=== PATIENT | female | born 1940 | race Caucasian/White ===

== ENCOUNTER 2017-10-19 13:47 | Inpatient (IN) | payer MEDICARE ==
[~2017-10-19] VITALS: Ht 165.1 cm; Wt 45.0 kg
[2017-10-19 14:28] LABS: BASOPHILS % (AUTO) 0.5 % (0.0-5.0); EOSINOPHILS % (AUTO) 1.8 % (0.0-8.0); HEMATOCRIT 28.8 % (36-48); MEAN CORPUSCULAR HEMOGLOBIN 33.5 pg (27.0-33.0); MEAN CORPUSCULAR HGB CONC 32.9 g/dL (32.0-36.0); MEAN CORPUSCULAR VOLUME 102.1 fL (79-99); MONOCYTES % (AUTO) 8.4 % (3.0-13.0); NEUTROPHILS % (AUTO) 82.1 % (40.0-77.0); PLATELET COUNT (AUTO) 382 K/uL (130-400); RED BLOOD CELL COUNT(AUTO) 2.82 MIL/uL (4.00-5.50); RED CELL DISTRIBUTION WIDTH 15.7 % (11.0-15.5); WHITE BLOOD COUNT (AUTO) 12.2 K/uL (4.8-10.8)
[2017-10-19 14:35] LABS: POTASSIUM 3.6 mmol/L (3.5-5.1)
[2017-10-19 14:40] LABS: ALBUMIN 3.2 g/dL (3.5-5.0); BILIRUBIN,TOTAL 0.1 mg/dL (0.2-1.0); INR 0.89 (0.85-1.15); PARTIAL THROMBOPLASTIN TIME 21.8 SEC (26.3-35.5); PROTHROMBIN TIME 9.4 SEC (9.6-11.6); TOTAL PROTEIN, SERUM 6.8 g/dL (6.0-8.3)
[2017-10-19 14:57] LABS: LYMPHOCYTES % (AUTO) 7.2 % (21.0-51.0)
[2017-10-19] MEDS ORDERED: HEPARIN SODIUM 5000UNIT/ML 1ML VIAL ONE (16:42)
[2017-10-19] MEDS ORDERED: HEPARIN 25000 UNITS/250 ML D5W 250 ML IV ONE (16:43)
[2017-10-19] MEDS ORDERED: HYDROMORPHONE 4MG/ML 1ML VIAL ONE (17:33)
[2017-10-20 05:43] LABS: BASOPHILS % (AUTO) 0.9 % (0.0-5.0); EOSINOPHILS % (AUTO) 6.1 % (0.0-8.0); HEMATOCRIT 27.5 % (36-48); LYMPHOCYTES % (AUTO) 10.9 % (21.0-51.0); MEAN CORPUSCULAR HEMOGLOBIN 34.7 pg (27.0-33.0); MEAN CORPUSCULAR HGB CONC 33.9 g/dL (32.0-36.0); MEAN CORPUSCULAR VOLUME 102.6 fL (79-99); MONOCYTES % (AUTO) 8.2 % (3.0-13.0); NEUTROPHILS % (AUTO) 73.9 % (40.0-77.0); PLATELET COUNT (AUTO) 361 K/uL (130-400); RED BLOOD CELL COUNT(AUTO) 2.68 MIL/uL (4.00-5.50); RED CELL DISTRIBUTION WIDTH 15.7 % (11.0-15.5); WHITE BLOOD COUNT (AUTO) 7.6 K/uL (4.8-10.8)
[2017-10-20 05:54] LABS: CREATININE 0.6 mg/dL (0.5-1.5); POTASSIUM 3.9 mmol/L (3.5-5.1)
[2017-10-20 05:59] LABS: BILIRUBIN,TOTAL 0.2 mg/dL (0.2-1.0); TOTAL PROTEIN, SERUM 6.4 g/dL (6.0-8.3)
[2017-10-20 07:51] LABS: INR 0.93 (0.85-1.15); PARTIAL THROMBOPLASTIN TIME 44.9 SEC (26.3-35.5); PROTHROMBIN TIME 9.8 SEC (9.6-11.6)
[2017-10-20 10:04] VITALS: BP 138/57
[2017-10-20] MEDS: SODIUM CHLORIDE 0.9% 1000ML 1,000 ML IV SCH ×2 (10:23→20:17)
[2017-10-20] MEDS ORDERED: OMEG-138 PO (10:49)
[2017-10-20] MEDS ORDERED: LISI-617 PO (10:49)
[2017-10-20] MEDS ORDERED: CHOL100046 PO (10:49)
[2017-10-20] MEDS ORDERED: BUDE10.2 IH (10:49)
[2017-10-20] MEDS ORDERED: FERR-82 PO (10:49)
[2017-10-20] MEDS ORDERED: OMEP20TA2 PO (10:49)
[2017-10-20] MEDS ORDERED: CALC600T12 PO (10:49)
[2017-10-20] MEDS ORDERED: ASPI-1197 PO (10:49)
[2017-10-20] MEDS ORDERED: IOPAMIDOL-370 75 ML VIAL IV ONE (11:02)
[2017-10-20] MEDS ORDERED: ISOVUE-370 50ML VIAL IV ONE (11:02)
[2017-10-20 12:07] VITALS: BP 144/71
[2017-10-20 14:07] LABS: INR 0.93 (0.85-1.15); PARTIAL THROMBOPLASTIN TIME 54.4 SEC (26.3-35.5); PROTHROMBIN TIME 9.8 SEC (9.6-11.6)
[2017-10-20 15:36] VITALS: BP 157/70
[2017-10-20] MEDS ORDERED: ALBU2.5V2 IH (19:00)
[2017-10-20 19:35] VITALS: BP 152/78
[2017-10-20] MEDS: HEPARIN 25000 UNITS/250 ML D5W 250 ML IV PRN (20:14)
[2017-10-20] MEDS: ALBUTEROL SULFATE 0.083% 2.5 MG/3 ML INH IH PRN (20:47)
[2017-10-20] MEDS: LISINOPRIL 5 MG TABLET PO SCH (21:59)
[2017-10-20 23:31] VITALS: BP 126/53
[2017-10-21] VITALS (12 sets, daily range): BP systolic 102–172; BP diastolic 48–80
[2017-10-21 05:24] LABS: INR 0.95 (0.85-1.15); PARTIAL THROMBOPLASTIN TIME 52.4 SEC (26.3-35.5)
[2017-10-21] MEDS: ALBUTEROL SULFATE 0.083% 2.5 MG/3 ML INH IH PRN ×2 (06:50→19:58)
[2017-10-21] MEDS ORDERED: ISOVUE-300 100 ML VIAL IV ONE (07:09)
[2017-10-21] MEDS ORDERED: HEPARIN SODIUM 1000UNIT/ML 10ML VIAL ONE (07:09)
[2017-10-21] MEDS ORDERED: LIDOCAINE HCL 2% 20ML ONE (07:09)
[2017-10-21] MEDS ORDERED: NITROGLYCERIN 5 MG/ML 10 ML VIAL IV ONE (07:09)
[2017-10-21] MEDS ORDERED: SODIUM BICARB 50MEQ 50ML VIAL ONE (07:37)
[2017-10-21] MEDS ORDERED: KETOROLAC TROMETHAMINE 30MG/ML ONE (07:45)
[2017-10-21] MEDS: Cholecalciferol (Vitamin D3) (Vitamin D) 1,000 UNIT PO SCH (09:00)
[2017-10-21] MEDS: SYMBICORT 160-4.5 MCG INHALER IH SCH ×2 (09:00→19:48)
[2017-10-21] MEDS: PANTOPRAZOLE SODIUM 40 MG TABLET.DR PO SCH (09:00)
[2017-10-21] MEDS: FISH OIL 1000 MG/CAP PO SCH (09:00)
[2017-10-21] MEDS: FERROUS SULFATE 325 MG TABLET.DR PO SCH (09:00)
[2017-10-21] MEDS: ASPIRIN 81MG TAB.CHEW PO SCH (09:00)
[2017-10-21] MEDS: CALCIUM CARBONATE 500 MG TABLET PO SCH (09:00)
[2017-10-21] MEDS ORDERED: ACETAMINOPHEN 325 MG TAB PO PRN (09:15)
[2017-10-21] MEDS ORDERED: KETOROLAC TROMETHAMINE 30MG/ML IV PRN (09:15)
[2017-10-21] MEDS: SODIUM CHLORIDE 0.9% 1000ML 1,000 ML IV SCH ×3 (09:58→18:34)
[2017-10-21] MEDS ORDERED: ACETAMINOPHEN-CODEINE 300/30MG TAB PO PRN ×2 (14:00)
[2017-10-21] MEDS ORDERED: HYDR-4068 PO (14:11)
[2017-10-21] MEDS ORDERED: REGADENOSON 0.4 MG/5 ML PF SYG IVP SCH (15:00)
[2017-10-21] MEDS ORDERED: HYDROCODONE/ACETAMINOPHEN 10/325 MG TAB PO PRN (15:45)
[2017-10-21] MEDS: LISINOPRIL 5 MG TABLET PO SCH (19:51)
[2017-10-21 20:06] LABS: INR 0.94 (0.85-1.15); PROTHROMBIN TIME 9.9 SEC (9.6-11.6)
[2017-10-22 03:58] VITALS: BP 104/53
[2017-10-22] MEDS: ALBUTEROL SULFATE 0.083% 2.5 MG/3 ML INH IH PRN ×2 (05:19→10:38)
[2017-10-22] MEDS: HYDROCODONE/ACETAMINOPHEN 10/325 MG TAB PO PRN ×2 (06:26→19:44)
[2017-10-22 08:00] VITALS: BP 103/48
[2017-10-22] MEDS: FISH OIL 1000 MG/CAP PO SCH (08:33)
[2017-10-22] MEDS: SODIUM CHLORIDE 0.9% 1000ML 1,000 ML IV SCH (08:33)
[2017-10-22] MEDS: ASPIRIN 81MG TAB.CHEW PO SCH (08:33)
[2017-10-22] MEDS: CALCIUM CARBONATE 500 MG TABLET PO SCH (08:33)
[2017-10-22] MEDS: FERROUS SULFATE 325 MG TABLET.DR PO SCH (08:34)
[2017-10-22] MEDS: Cholecalciferol (Vitamin D3) (Vitamin D) 1,000 UNIT PO SCH (08:34)
[2017-10-22] MEDS: SYMBICORT 160-4.5 MCG INHALER IH SCH ×2 (08:34→19:38)
[2017-10-22] MEDS: PANTOPRAZOLE SODIUM 40 MG TABLET.DR PO SCH (08:34)
[2017-10-22 11:00] VITALS: BP 111/56
[2017-10-22] MEDS: ALBUTEROL SULFATE 0.083% 2.5 MG/3 ML INH IH SCH ×2 (13:44→18:46)
[2017-10-22 16:00] VITALS: BP 114/70
[2017-10-22] MEDS: HEPARIN 25000 UNITS/250 ML D5W 250 ML IV PRN (16:25)
[2017-10-22] MEDS: LISINOPRIL 5 MG TABLET PO SCH (19:43)
[2017-10-22 19:46] VITALS: BP 137/68
[2017-10-22 23:38] VITALS: BP 117/56
[2017-10-23 03:43] VITALS: BP 119/52
[2017-10-23] MEDS: ALBUTEROL SULFATE 0.083% 2.5 MG/3 ML INH IH SCH ×4 (06:07→18:17)
[2017-10-23 07:24] LABS: MEAN CORPUSCULAR HEMOGLOBIN 34.1 pg (27.0-33.0); MEAN CORPUSCULAR HGB CONC 33.3 g/dL (32.0-36.0); MEAN CORPUSCULAR VOLUME 102.2 fL (79-99); PLATELET COUNT (AUTO) 240 K/uL (130-400); RED BLOOD CELL COUNT(AUTO) 1.93 MIL/uL (4.00-5.50); RED CELL DISTRIBUTION WIDTH 15.2 % (11.0-15.5); WHITE BLOOD COUNT (AUTO) 7.5 K/uL (4.8-10.8)
[2017-10-23 07:32] LABS: CREATININE 0.6 mg/dL (0.5-1.5); POTASSIUM 3.9 mmol/L (3.5-5.1)
[2017-10-23 07:34] LABS: HEMATOCRIT 19.7 % (36-48)
[2017-10-23 07:41] VITALS: BP 137/49
[2017-10-23 08:49] LABS: HEMATOCRIT 21.5 % (36-48)
[2017-10-23] MEDS: SYMBICORT 160-4.5 MCG INHALER IH SCH ×2 (09:00→21:00)
[2017-10-23] MEDS: Cholecalciferol (Vitamin D3) (Vitamin D) 1,000 UNIT PO SCH (09:00)
[2017-10-23] MEDS: ASPIRIN 81MG TAB.CHEW PO SCH (10:17)
[2017-10-23] MEDS: FISH OIL 1000 MG/CAP PO SCH (10:17)
[2017-10-23] MEDS: PANTOPRAZOLE SODIUM 40 MG TABLET.DR PO SCH ×2 (10:17→20:44)
[2017-10-23] MEDS: CALCIUM CARBONATE 500 MG TABLET PO SCH (10:17)
[2017-10-23] MEDS: FERROUS SULFATE 325 MG TABLET.DR PO SCH (10:17)
[2017-10-23 11:16] VITALS: BP 118/47
[2017-10-23 16:19] VITALS: BP 145/68
[2017-10-23 19:59] VITALS: BP 133/69
[2017-10-23] MEDS ORDERED: SODIUM CHLORIDE 0.9% 250 ML IV ONE (20:35)
[2017-10-23] MEDS: ATORVASTATIN CALCIUM 20 MG TABLET PO SCH (20:44)
[2017-10-23] MEDS: LISINOPRIL 5 MG TABLET PO SCH (20:44)
[2017-10-23] MEDS: HYDROCODONE/ACETAMINOPHEN 10/325 MG TAB PO PRN (20:52)
[2017-10-24] VITALS (7 sets, daily range): BP systolic 110–144; BP diastolic 43–87
[2017-10-24] MEDS: ALBUTEROL SULFATE 0.083% 2.5 MG/3 ML INH IH SCH ×4 (06:17→18:50)
[2017-10-24 08:42] LABS: HEMATOCRIT 29.1 % (36-48)
[2017-10-24] MEDS: SYMBICORT 160-4.5 MCG INHALER IH SCH ×2 (09:00→20:04)
[2017-10-24] MEDS: Cholecalciferol (Vitamin D3) (Vitamin D) 1,000 UNIT PO SCH (09:00)
[2017-10-24] MEDS: ASPIRIN 81MG TAB.CHEW PO SCH (09:46)
[2017-10-24] MEDS: FERROUS SULFATE 325 MG TABLET.DR PO SCH (09:46)
[2017-10-24] MEDS: PANTOPRAZOLE SODIUM 40 MG TABLET.DR PO SCH ×2 (09:46→20:04)
[2017-10-24] MEDS: FISH OIL 1000 MG/CAP PO SCH (09:46)
[2017-10-24] MEDS: CALCIUM CARBONATE 500 MG TABLET PO SCH (09:46)
[2017-10-24] MEDS: HYDROCODONE/ACETAMINOPHEN 10/325 MG TAB PO PRN (11:34)
[2017-10-24] MEDS: APIXABAN 5 MG TABLET PO SCH ×2 (17:10→20:04)
[2017-10-24] MEDS: ATORVASTATIN CALCIUM 20 MG TABLET PO SCH (20:04)
[2017-10-24] MEDS: LISINOPRIL 5 MG TABLET PO SCH (20:04)
[2017-10-25 03:34] VITALS: BP 132/61
[2017-10-25 07:17] VITALS: BP 135/76
[2017-10-25] MEDS: FISH OIL 1000 MG/CAP PO SCH (07:58)
[2017-10-25] MEDS: FERROUS SULFATE 325 MG TABLET.DR PO SCH (07:58)
[2017-10-25] MEDS: ASPIRIN 81MG TAB.CHEW PO SCH (07:58)
[2017-10-25] MEDS: APIXABAN 5 MG TABLET PO SCH ×2 (07:58→18:00)
[2017-10-25] MEDS: PANTOPRAZOLE SODIUM 40 MG TABLET.DR PO SCH (07:58)
[2017-10-25] MEDS: CALCIUM CARBONATE 500 MG TABLET PO SCH (07:58)
[2017-10-25] MEDS: ALBUTEROL SULFATE 0.083% 2.5 MG/3 ML INH IH SCH ×3 (07:59→14:19)
[2017-10-25] MEDS: HYDROCODONE/ACETAMINOPHEN 10/325 MG TAB PO PRN (08:40)
[2017-10-25] MEDS: Cholecalciferol (Vitamin D3) (Vitamin D) 1,000 UNIT PO SCH (09:00)
[2017-10-25] MEDS: SYMBICORT 160-4.5 MCG INHALER IH SCH (09:00)
[2017-10-25 10:50] VITALS: BP 123/66
[2017-10-25 16:35] VITALS: BP 151/74
== END 2017-10-25 18:25 | disposition home or self-care (01) | DRG 300 ==
LOC: EDH 13:47 → EDHIP 15:11 → 4DH 10-20 09:45 → 2DH 10-20 16:03
PROVIDERS: ADMIT Internal Medicine; ATTEND Internal Medicine
PROC: B4101ZZ Fluoroscopy of Abdominal Aorta using Low Osmolar Contrast (ICD-10-PCS; principal; 2017-10-21)
PROC: B41G1ZZ Fluoroscopy of Left Lower Extremity Arteries using Low Osmolar Contrast (ICD-10-PCS; 2017-10-21)
PROC: 30233N1 Transfusion of Nonautologous Red Blood Cells into Peripheral Vein, Percutaneous Approach (ICD-10-PCS; 2017-10-23)
PROC: 30233N1 Transfusion of Nonautologous Red Blood Cells into Peripheral Vein, Percutaneous Approach (ICD-10-PCS; 2017-10-24)
DX: I74.5 Embolism and thrombosis of iliac artery (principal); J44.1 Chronic obstructive pulmonary disease with (acute) exacerbation; Z99.81 Dependence on supplemental oxygen; D64.9 Anemia, unspecified; I70.209 Unspecified atherosclerosis of native arteries of extremities, unspecified extremity; Z66 Do not resuscitate; E78.5 Hyperlipidemia, unspecified; I10 Essential (primary) hypertension; I99.8 Other disorder of circulatory system; F17.200 Nicotine dependence, unspecified, uncomplicated; G89.29 Other chronic pain; M54.9 Dorsalgia, unspecified; I25.119 Atherosclerotic heart disease of native coronary artery with unspecified angina pectoris; I70.8 Atherosclerosis of other arteries; I77.3 Arterial fibromuscular dysplasia; I77.819 Aortic ectasia, unspecified site; Z90.49 Acquired absence of other specified parts of digestive tract
CPT/HCPCS: 36245; 36246; 36415; 75625; 75630; 75635; 75716; 75774; 78452; 80048; 80053; 85025; 85027; 85347; 85610; 85730; 86850; 86900; 86901; 86922; 93005; 93017; 93306; 93926; 93930; 93971; 94640; 94664; 96374; A9500; C1769; C1887; C1894; J1170; J1644; J1885; J2785; J3490; J7030; P9016; Q9967

== ENCOUNTER → 2017-10-19 | Outpatient (CLI) | payer MEDICARE ==
[~2017-10-19] MED LIST: AEC81 PO; ALBU2.5V2 IH; ANTI1CAP2 PO; APIX2.5T PO; ASPI-1197 PO; ATOR10 PO; AUD IH; BUDE0.5A8 IH; BUDE10.2 IH; CALC-916 PO; CALC600T12 PO; CHOL100046 PO; DOCU-116 PO; FERR-82 PO; FERS325 PO; FISH1CAP50 PO; GUAI5SYR PO; HYDR-2132 PO; HYDR-305 PO; HYDR-4068 PO; LACT10SO9 PO; LISI-617 PO; LISI2.5T2 PO; METO5VIA33 PO; MV-M1TAB20 PO; OMEG-138 PO; OMEP20CA10 PO; OMEP20TA2 PO; PRED10TA23 PO; PRED10TA3 PO
== END | disposition home or self-care (01) ==
LOC: RAH 12:33
PROVIDERS: ATTEND Family Medicine
DX: I70.202 Unspecified atherosclerosis of native arteries of extremities, left leg (principal); R60.0 Localized edema; R20.0 Anesthesia of skin
CPT/HCPCS: 93926; 93971

== ENCOUNTER 2017-11-04 15:26 | Inpatient (IN) | payer MEDICARE ==
[~2017-11-04] VITALS: Ht 165.1 cm; Wt 47.6 kg
[~2017-11-04 15:26] MED LIST changes: -AEC81 PO; -ANTI1CAP2 PO; -APIX2.5T PO; -ATOR10 PO; -AUD IH; -BUDE0.5A8 IH; -CALC-916 PO; -DOCU-116 PO; -FERS325 PO; -FISH1CAP50 PO; -GUAI5SYR PO; -HYDR-2132 PO; -HYDR-305 PO; -LACT10SO9 PO; -LISI2.5T2 PO; -METO5VIA33 PO; -MV-M1TAB20 PO; -OMEP20CA10 PO; -PRED10TA23 PO; -PRED10TA3 PO
[2017-11-04 16:21] LABS: BASOPHILS % (AUTO) 0.3 % (0.0-5.0); EOSINOPHILS % (AUTO) 0.1 % (0.0-8.0); LYMPHOCYTES % (AUTO) 4.5 % (21.0-51.0); MEAN CORPUSCULAR HEMOGLOBIN 32.4 pg (27.0-33.0); MEAN CORPUSCULAR HGB CONC 32.3 g/dL (32.0-36.0); MEAN CORPUSCULAR VOLUME 100.4 fL (79-99); MONOCYTES % (AUTO) 4.9 % (3.0-13.0); NEUTROPHILS % (AUTO) 90.2 % (40.0-77.0); PLATELET COUNT (AUTO) 731 K/uL (130-400); RED BLOOD CELL COUNT(AUTO) 1.58 MIL/uL (4.00-5.50); WHITE BLOOD COUNT (AUTO) 14.2 K/uL (4.8-10.8)
[2017-11-04 16:29] LABS: CREATININE 1.1 mg/dL (0.5-1.5); POTASSIUM 4.1 mmol/L (3.5-5.1)
[2017-11-04 16:32] LABS: HEMATOCRIT 15.8 % (36-48)
[2017-11-04 16:33] LABS: ALBUMIN 2.8 g/dL (3.5-5.0); BILIRUBIN,TOTAL 0.2 mg/dL (0.2-1.0); TOTAL PROTEIN, SERUM 6.1 g/dL (6.0-8.3)
[2017-11-04] MEDS ORDERED: CEFUROXIME 1.5GM+NS 100ML 100 ML IV SCH (18:00)
[2017-11-04] MEDS ORDERED: SODIUM CHLORIDE 0.9% 1000ML 1,000 ML IV ONE (18:13)
[2017-11-04] MEDS ORDERED: APIX2.5T PO (18:25)
[2017-11-04] MEDS ORDERED: PRED10TA3 PO (18:25)
[2017-11-04] MEDS ORDERED: ANTI1CAP2 PO (18:25)
[2017-11-04] MEDS ORDERED: WATER FOR INJECTION,STERILE 20 ML VIAL IJ SCH (18:30)
[2017-11-04 18:34] VITALS: BP 115/54
[2017-11-04] MEDS ORDERED: FUROSEMIDE 10 MG/ML 2ML VIAL IV SCH (19:30)
[2017-11-04] MEDS ORDERED: FUROSEMIDE 10 MG/ML 2ML VIAL IVP SCH (20:00)
[2017-11-04 20:09] VITALS: BP 100/50
[2017-11-04] MEDS ORDERED: SODIUM CHLORIDE 0.9% 1000ML 1,000 ML IV SCH (21:45)
[2017-11-05] VITALS (28 sets, daily range): BP systolic 111–172; BP diastolic 41–80
[2017-11-05] MEDS: IPRATROPIUM/ALBUTEROL SULFATE 3 ML SOLUTION IH SCH ×8 (00:12→23:20)
[2017-11-05 05:08] LABS: HEMATOCRIT 24.1 % (36-48); MEAN CORPUSCULAR HEMOGLOBIN 32.4 pg (27.0-33.0); MEAN CORPUSCULAR HGB CONC 35.8 g/dL (32.0-36.0); MEAN CORPUSCULAR VOLUME 90.6 fL (79-99); PLATELET COUNT (AUTO) 511 K/uL (130-400); RED BLOOD CELL COUNT(AUTO) 2.66 MIL/uL (4.00-5.50); RED CELL DISTRIBUTION WIDTH 18.8 % (11.0-15.5); WHITE BLOOD COUNT (AUTO) 10.4 K/uL (4.8-10.8)
[2017-11-05 05:19] LABS: INR 0.95 (0.85-1.15)
[2017-11-05 05:24] LABS: CREATININE 0.8 mg/dL (0.5-1.5); POTASSIUM 3.8 mmol/L (3.5-5.1)
[2017-11-05] MEDS ORDERED: MORPHINE SULFATE 2 MG/ML 1ML SYG ONE (05:43)
[2017-11-05] MEDS ORDERED: MORPHINE SULFATE 2 MG/ML 1ML SYG IVP ONE (05:45)
[2017-11-05] MEDS: FAMOTIDINE/PF 20 MG/2 ML VIAL IV SCH ×2 (09:11→09:22)
[2017-11-05] MEDS ORDERED: MORPHINE SULFATE 4 MG/1ML SYG IV PRN (10:30)
[2017-11-05] MEDS: MORPHINE SULFATE 2 MG/ML 1ML SYG IV PRN ×3 (10:30→23:31)
[2017-11-05] MEDS: CEFUROXIME SODIUM 1.5 GM VIAL IVP SCH ×3 (11:30→22:04)
[2017-11-05] MEDS ORDERED: OCTYL 2-CYANOACRYLATE 1 EACH TP ONE (11:55)
[2017-11-05] MEDS ORDERED: BACITRACIN 50,000 UNIT VIAL ONE (11:56)
[2017-11-05] MEDS ORDERED: DEXAMETHASONE SOD PHOSPHATE 10MG/ML 1ML VIAL ONE (12:23)
[2017-11-05] MEDS ORDERED: SUCCINYLCHOLINE 200MG/10ML SYR ONE (12:23)
[2017-11-05] MEDS ORDERED: GLYCOPYRROLATE 0.2 MG/ML 5 ML VIAL ONE (12:23)
[2017-11-05] MEDS ORDERED: ONDANSETRON HCL 4 MG/2 ML VIAL ONE (12:23)
[2017-11-05] MEDS ORDERED: NEOSTIGMINE METHYLSULFATE 1MG/ML IV ONE (12:23)
[2017-11-05] MEDS ORDERED: PROPOFOL 10 MG/ML 20ML VIAL IV ONE (12:23)
[2017-11-05] MEDS ORDERED: FENTANYL CITRATE PF 50 MCG/1 ML 2ML VIAL ONE ×2 (12:23→13:54)
[2017-11-05] MEDS ORDERED: MIDAZOLAM HCL 1 MG/ML 2ML VIAL ONE (12:23)
[2017-11-05] MEDS ORDERED: LIDOCAINE PF 2% 5ML ABBOJECT ONE (12:23)
[2017-11-05] MEDS ORDERED: THROMBIN-JMI 5000 UNIT/VIAL TP ONE (12:58)
[2017-11-05] MEDS ORDERED: HEPARIN SODIUM 1000UNIT/ML 10ML VIAL ONE (13:37)
[2017-11-05] MEDS ORDERED: DEXTROSE 5 %-0.45 % NACL 1,000 ML IV SCH (14:00)
[2017-11-05] MEDS ORDERED: ENOXAPARIN SODIUM 40 MG/0.4 ML SYRINGE SQ SCH (14:00)
[2017-11-05] MEDS ORDERED: ACETAMINOPHEN 325 MG TAB PO PRN (14:00)
[2017-11-05] MEDS ORDERED: MAGNESIUM HYDROXIDE 30 ML/UDCUP PO PRN (14:00)
[2017-11-05] MEDS ORDERED: TRAMADOL HCL 50 MG TABLET PO PRN (14:00)
[2017-11-05] MEDS ORDERED: MEPERIDINE-PF 50 MG/ML SYG ONE (16:38)
[2017-11-05] MEDS: ALBUTEROL SULFATE 0.083% 2.5 MG/3 ML INH IH SCH (18:00)
[2017-11-05] MEDS: BUDESONIDE 0.5 MG/2 ML INH IH SCH (19:35)
[2017-11-05] MEDS ORDERED: CEFUROXIME SODIUM 1.5 GM VIAL ONE (20:05)
[2017-11-05] MEDS ORDERED: CEFUROXIME 1.5GM+NS 100ML 100 ML IV SCH (22:00)
[2017-11-06] VITALS (7 sets, daily range): BP systolic 109–143; BP diastolic 54–66
[2017-11-06] MEDS: HYDROCODONE/ACETAMINOPHEN 5/325 MG TAB PO PRN ×3 (04:27→17:49)
[2017-11-06 04:52] LABS: ALBUMIN 2.4 g/dL (3.5-5.0); BILIRUBIN,TOTAL 0.3 mg/dL (0.2-1.0); CREATININE 0.7 mg/dL (0.5-1.5); TOTAL PROTEIN, SERUM 5.3 g/dL (6.0-8.3)
[2017-11-06 05:29] LABS: HEMATOCRIT 24.9 % (36-48); MEAN CORPUSCULAR HEMOGLOBIN 30.6 pg (27.0-33.0); MEAN CORPUSCULAR HGB CONC 33.4 g/dL (32.0-36.0); MEAN CORPUSCULAR VOLUME 91.5 fL (79-99); PLATELET COUNT (AUTO) 314 K/uL (130-400); RED BLOOD CELL COUNT(AUTO) 2.72 MIL/uL (4.00-5.50); RED CELL DISTRIBUTION WIDTH 19.5 % (11.0-15.5); WHITE BLOOD COUNT (AUTO) 14.2 K/uL (4.8-10.8)
[2017-11-06] MEDS: ALBUTEROL SULFATE 0.083% 2.5 MG/3 ML INH IH SCH ×3 (06:00→18:00)
[2017-11-06] MEDS: IPRATROPIUM/ALBUTEROL SULFATE 3 ML SOLUTION IH SCH ×4 (06:21→23:48)
[2017-11-06] MEDS: BUDESONIDE 0.5 MG/2 ML INH IH SCH ×2 (06:21→18:34)
[2017-11-06] MEDS: FAMOTIDINE/PF 20 MG/2 ML VIAL IV SCH (10:00)
[2017-11-06] MEDS: CEFUROXIME SODIUM 1.5 GM VIAL IVP SCH ×2 (10:00→21:06)
[2017-11-06] MEDS: FERROUS SULFATE 325 MG TABLET.DR PO SCH (10:00)
[2017-11-06] MEDS: CLOPIDOGREL BISULFATE 75 MG TAB PO SCH (10:00)
[2017-11-06 10:16] LABS: % IRON SATURATION 4.1 % (22-44); FERRITIN 35 ng/mL (15-150); IRON, SERUM 13 mcg/dL (50-170); TOTAL IRON BINDING CAPACITY 310 mcg/dL (250-450)
[2017-11-06] MEDS ORDERED: GUAIFENESIN-DM 200/20 MG 10 ML PO PRN (18:15)
[2017-11-06] MEDS: METOPROLOL TARTRATE 25 MG TAB PO SCH (21:05)
[2017-11-07] MEDS: HYDROCODONE/ACETAMINOPHEN 5/325 MG TAB PO PRN ×3 (00:29→23:29)
[2017-11-07 04:34] VITALS: BP 152/57
[2017-11-07 04:44] LABS: BASOPHILS % (AUTO) 0.2 % (0.0-5.0); EOSINOPHILS % (AUTO) 0.1 % (0.0-8.0); HEMATOCRIT 24.8 % (36-48); LYMPHOCYTES % (AUTO) 2.3 % (21.0-51.0); MEAN CORPUSCULAR HEMOGLOBIN 30.3 pg (27.0-33.0); MEAN CORPUSCULAR HGB CONC 32.9 g/dL (32.0-36.0); MEAN CORPUSCULAR VOLUME 91.9 fL (79-99); MONOCYTES % (AUTO) 5.6 % (3.0-13.0); NEUTROPHILS % (AUTO) 91.8 % (40.0-77.0); PLATELET COUNT (AUTO) 291 K/uL (130-400); RED CELL DISTRIBUTION WIDTH 18.4 % (11.0-15.5); WHITE BLOOD COUNT (AUTO) 22.1 K/uL (4.8-10.8)
[2017-11-07 05:37] LABS: CREATININE 0.7 mg/dL (0.5-1.5); MAGNESIUM 1.3 mg/dL (1.80-2.40); POTASSIUM 3.5 mmol/L (3.5-5.1)
[2017-11-07] MEDS: IPRATROPIUM/ALBUTEROL SULFATE 3 ML SOLUTION IH SCH ×3 (05:49→18:00)
[2017-11-07] MEDS: BUDESONIDE 0.5 MG/2 ML INH IH SCH ×2 (05:50→17:09)
[2017-11-07] MEDS: ALBUTEROL SULFATE 0.083% 2.5 MG/3 ML INH IH SCH ×5 (06:00→23:23)
[2017-11-07 07:00] VITALS: BP 126/61
[2017-11-07] MEDS: ATORVASTATIN CALCIUM 20 MG TABLET PO SCH (07:58)
[2017-11-07] MEDS: METOPROLOL TARTRATE 25 MG TAB PO SCH ×2 (07:58→21:00)
[2017-11-07] MEDS: FERROUS SULFATE 325 MG TABLET.DR PO SCH (07:58)
[2017-11-07] MEDS: FAMOTIDINE/PF 20 MG/2 ML VIAL IV SCH (07:58)
[2017-11-07] MEDS: CLOPIDOGREL BISULFATE 75 MG TAB PO SCH (07:58)
[2017-11-07] MEDS ORDERED: ENOXAPARIN SODIUM 30 MG/0.3 ML SQ SCH (09:00)
[2017-11-07] MEDS ORDERED: ASPIRIN 81MG TAB.CHEW PO SCH (09:00)
[2017-11-07 11:00] VITALS: BP 127/55
[2017-11-07] MEDS ORDERED: LIDOCAINE HCL-MPF 1% 2ML VIAL IVP PRN (14:00)
[2017-11-07] MEDS ORDERED: MAGNESIUM 2GM PREMIX 50ML 50 ML IV SCH (14:00)
[2017-11-07] MEDS ORDERED: POTASSIUM CHLORIDE 20MEQ/100ML 100 ML IV PRN (14:00)
[2017-11-07] MEDS: POTASSIUM CHLORIDE 20 MEQ ERTAB PO PRN ×2 (14:56→16:51)
[2017-11-07 15:13] LABS: APPEARANCE,URINE Clear (CLEAR); BILIRUBIN,URINE Negative (NEGATIVE); COLOR,URINE Yellow (YELLOW); GLUCOSE, URINE (UA) Negative (NEGATIVE); KETONES,URINE Trace mg/dL (NEGATIVE); LEUKOCYTE ESTERASE ,URINE Trace (NEGATIVE); NITRATE,URINE Negative (NEGATIVE); OCCULT BLOOD,URINE Trace (NEGATIVE); PH,URINE 5.5 (5.0-8.0); PROTEIN,URINE Trace (NEGATIVE); UROBILINOGEN,URINE 0.2 mg/dL (0.2-1.0)
[2017-11-07 15:53] LABS: BACTERIA,URINE None Seen /HPF (None Seen); RBC,URINE 0-1 /HPF (0-1); SQUAMOUS EPITHELIAL CELL,UR 0-2 /LPF (0-2); WBC,URINE 0-1 /HPF (0-1)
[2017-11-07 16:00] VITALS: BP 103/57
[2017-11-07] MEDS ORDERED: PHARMACY COMMUNICATION MISC SCH (18:30)
[2017-11-07 19:35] VITALS: BP 102/54
[2017-11-07 23:44] VITALS: BP 115/61
[2017-11-08] VITALS (12 sets, daily range): BP systolic 97–139; BP diastolic 46–69
[2017-11-08 04:26] LABS: HEMATOCRIT 21.7 % (36-48); MEAN CORPUSCULAR HEMOGLOBIN 30.3 pg (27.0-33.0); MEAN CORPUSCULAR HGB CONC 32.9 g/dL (32.0-36.0); MEAN CORPUSCULAR VOLUME 92.1 fL (79-99); PLATELET COUNT (AUTO) 280 K/uL (130-400); RED BLOOD CELL COUNT(AUTO) 2.36 MIL/uL (4.00-5.50); RED CELL DISTRIBUTION WIDTH 18.3 % (11.0-15.5); WHITE BLOOD COUNT (AUTO) 13.4 K/uL (4.8-10.8)
[2017-11-08 04:38] LABS: CREATININE 0.6 mg/dL (0.5-1.5); POTASSIUM 3.8 mmol/L (3.5-5.1)
[2017-11-08] MEDS: ALBUTEROL SULFATE 0.083% 2.5 MG/3 ML INH IH SCH ×3 (06:00→16:34)
[2017-11-08] MEDS: BUDESONIDE 0.5 MG/2 ML INH IH SCH ×2 (06:44→16:34)
[2017-11-08] MEDS: IPRATROPIUM/ALBUTEROL SULFATE 3 ML SOLUTION IH SCH ×4 (06:44→18:00)
[2017-11-08] MEDS: HYDROCODONE/ACETAMINOPHEN 5/325 MG TAB PO PRN ×3 (07:53→22:44)
[2017-11-08] MEDS: FAMOTIDINE/PF 20 MG/2 ML VIAL IV SCH (07:53)
[2017-11-08 08:19] LABS: INR 1.04 (0.85-1.15); PARTIAL THROMBOPLASTIN TIME 32.4 SEC (26.3-35.5); PROTHROMBIN TIME 10.9 SEC (9.6-11.6)
[2017-11-08] MEDS ORDERED: PROPOFOL 10 MG/ML 20ML VIAL IV ONE ×2 (10:28→11:08)
[2017-11-08] MEDS ORDERED: GLYCOPYRROLATE 0.2 MG/ML 5 ML VIAL ONE (10:29)
[2017-11-08] MEDS ORDERED: LIDOCAINE HCL 2% 20ML ONE (10:30)
[2017-11-08] MEDS ORDERED: CALCIUM GLUCONATE 2 GM in SODIUM CHLORIDE 0.9% 50 ML IV SCH (11:45)
[2017-11-08] MEDS: ATORVASTATIN CALCIUM 20 MG TABLET PO SCH (12:30)
[2017-11-08] MEDS: METOPROLOL TARTRATE 25 MG TAB PO SCH ×2 (12:31→20:33)
[2017-11-08] MEDS: ALBUMIN (HUMAN) 25% 100 ML IV SCH ×2 (12:31→14:11)
[2017-11-08] MEDS: POTASSIUM CHLORIDE 10% ELIXIR 20 MEQ/15 ML UDCUP PO PRN ×2 (14:12→17:20)
[2017-11-08] MEDS ORDERED: LACTULOSE 20 GM/30 ML UDCUP PO SCH (18:00)
[2017-11-09] VITALS (7 sets, daily range): BP systolic 121–177; BP diastolic 58–84
[2017-11-09] MEDS: ALBUTEROL SULFATE 0.083% 2.5 MG/3 ML INH IH SCH ×4 (00:07→18:24)
[2017-11-09 04:37] LABS: MEAN CORPUSCULAR HEMOGLOBIN 30.3 pg (27.0-33.0); MEAN CORPUSCULAR VOLUME 91.8 fL (79-99); PLATELET COUNT (AUTO) 265 K/uL (130-400); RED BLOOD CELL COUNT(AUTO) 1.98 MIL/uL (4.00-5.50); RED CELL DISTRIBUTION WIDTH 17.7 % (11.0-15.5); WHITE BLOOD COUNT (AUTO) 10.3 K/uL (4.8-10.8)
[2017-11-09 04:41] LABS: HEMATOCRIT 18.2 % (36-48)
[2017-11-09] MEDS: IPRATROPIUM/ALBUTEROL SULFATE 3 ML SOLUTION IH SCH ×4 (06:00→18:00)
[2017-11-09 06:02] LABS: HEMATOCRIT 18.8 % (36-48)
[2017-11-09] MEDS: BUDESONIDE 0.5 MG/2 ML INH IH SCH ×2 (06:13→18:32)
[2017-11-09] MEDS: HYDROCODONE/ACETAMINOPHEN 5/325 MG TAB PO PRN ×2 (08:09→19:36)
[2017-11-09] MEDS: LACTULOSE 20 GM/30 ML UDCUP PO SCH ×2 (09:00→17:31)
[2017-11-09] MEDS ORDERED: METOPROLOL TARTRATE 25 MG TAB PO ONE (10:24)
[2017-11-09] MEDS: METOPROLOL TARTRATE 25 MG TAB PO SCH ×2 (10:27→20:19)
[2017-11-09] MEDS: FAMOTIDINE/PF 20 MG/2 ML VIAL IV SCH (10:27)
[2017-11-09] MEDS: ATORVASTATIN CALCIUM 20 MG TABLET PO SCH (10:27)
[2017-11-09] MEDS ORDERED: MIDAZOLAM HCL 1 MG/ML 2ML VIAL ONE (13:45)
[2017-11-09] MEDS ORDERED: FENTANYL CITRATE PF 50 MCG/1 ML 2ML VIAL ONE (13:45)
[2017-11-09] MEDS ORDERED: SODIUM CHLORIDE 0.9% 500ML 500 ML IV ONE (15:08)
[2017-11-09] MEDS ORDERED: PEG 3350/NA SULF,BICARB,CL/KCL 4000 ML SOLN PO SCH (16:00)
[2017-11-09] MEDS: MAGNESIUM CITRATE 296 ML SOLUTION PO SCH (17:31)
[2017-11-10] VITALS (15 sets, daily range): BP systolic 100–147; BP diastolic 50–93
[2017-11-10] MEDS: ALBUTEROL SULFATE 0.083% 2.5 MG/3 ML INH IH SCH ×5 (00:04→23:52)
[2017-11-10 04:31] LABS: HEMATOCRIT 30.1 % (36-48); MEAN CORPUSCULAR HEMOGLOBIN 29.9 pg (27.0-33.0); MEAN CORPUSCULAR HGB CONC 33.9 g/dL (32.0-36.0); MEAN CORPUSCULAR VOLUME 88.2 fL (79-99); PLATELET COUNT (AUTO) 266 K/uL (130-400); RED BLOOD CELL COUNT(AUTO) 3.42 MIL/uL (4.00-5.50)
[2017-11-10 04:53] LABS: CREATININE 0.4 mg/dL (0.5-1.5); POTASSIUM 3.9 mmol/L (3.5-5.1)
[2017-11-10] MEDS: IPRATROPIUM/ALBUTEROL SULFATE 3 ML SOLUTION IH SCH ×4 (06:00→18:00)
[2017-11-10] MEDS: HYDROCODONE/ACETAMINOPHEN 5/325 MG TAB PO PRN ×2 (06:01→21:50)
[2017-11-10] MEDS: BUDESONIDE 0.5 MG/2 ML INH IH SCH ×2 (06:06→18:27)
[2017-11-10] MEDS ORDERED: PROPOFOL 10 MG/ML 20ML VIAL IV ONE (12:40)
[2017-11-10] MEDS: MAGNESIUM CITRATE 296 ML SOLUTION PO SCH (14:00)
[2017-11-10] MEDS: ATORVASTATIN CALCIUM 20 MG TABLET PO SCH (14:51)
[2017-11-10] MEDS: FAMOTIDINE/PF 20 MG/2 ML VIAL IV SCH (14:51)
[2017-11-10] MEDS: METOPROLOL TARTRATE 25 MG TAB PO SCH ×2 (14:51→20:16)
[2017-11-11] VITALS (12 sets, daily range): BP systolic 122–155; BP diastolic 54–80
[2017-11-11] MEDS: ALBUTEROL SULFATE 0.083% 2.5 MG/3 ML INH IH SCH ×2 (06:00→11:09)
[2017-11-11] MEDS: IPRATROPIUM/ALBUTEROL SULFATE 3 ML SOLUTION IH SCH (06:18)
[2017-11-11] MEDS: BUDESONIDE 0.5 MG/2 ML INH IH SCH (06:26)
[2017-11-11] MEDS: ATORVASTATIN CALCIUM 20 MG TABLET PO SCH (08:06)
[2017-11-11] MEDS: METOPROLOL TARTRATE 25 MG TAB PO SCH (08:07)
[2017-11-11] MEDS: FAMOTIDINE/PF 20 MG/2 ML VIAL IV SCH (08:07)
[2017-11-11] MEDS ORDERED: PROPOFOL 10 MG/ML 20ML VIAL IV ONE (13:10)
[2017-11-11] MEDS ORDERED: LIDOCAINE HCL 1% 20 ML VIAL ONE (13:11)
[2017-11-11] MEDS: HYDROCODONE/ACETAMINOPHEN 5/325 MG TAB PO PRN (16:46)
== END 2017-11-11 18:41 | DRG 981 ==
LOC: EDH 15:26 → EDHIP 15:27 → 4CH 17:32 → 2DH 11-05 15:29
PROVIDERS: ADMIT Internal Medicine; ATTEND Internal Medicine
PROC: 30233N1 Transfusion of Nonautologous Red Blood Cells into Peripheral Vein, Percutaneous Approach (ICD-10-PCS; 2017-11-04)
PROC: 03B50ZZ Excision of Right Axillary Artery, Open Approach (ICD-10-PCS; 2017-11-05)
PROC: 041 Lower Arteries, Bypass (ICD-10-PCS; principal; 2017-11-05 12:13)
PROC: 0DJ08ZZ Inspection of Upper Intestinal Tract, Via Natural or Artificial Opening Endoscopic (ICD-10-PCS; 2017-11-08)
PROC: 0D568ZZ Destruction of Stomach, Via Natural or Artificial Opening Endoscopic (ICD-10-PCS; 2017-11-08)
PROC: 0W3P8ZZ Control Bleeding in Gastrointestinal Tract, Via Natural or Artificial Opening Endoscopic (ICD-10-PCS; 2017-11-08)
PROC: 07DR3ZX Extraction of Iliac Bone Marrow, Percutaneous Approach, Diagnostic (ICD-10-PCS; 2017-11-09)
PROC: 0DJD8ZZ Inspection of Lower Intestinal Tract, Via Natural or Artificial Opening Endoscopic (ICD-10-PCS; 2017-11-11)
DX: K31.811 Angiodysplasia of stomach and duodenum with bleeding (principal); E43 Unspecified severe protein-calorie malnutrition; J96.10 Chronic respiratory failure, unspecified whether with hypoxia or hypercapnia; I74.5 Embolism and thrombosis of iliac artery; K63.3 Ulcer of intestine; R65.10 Systemic inflammatory response syndrome (SIRS) of non-infectious origin without acute organ dysfunction; E44.1 Mild protein-calorie malnutrition; J44.1 Chronic obstructive pulmonary disease with (acute) exacerbation; Z68.1 Body mass index [BMI] 19.9 or less, adult; I73.9 Peripheral vascular disease, unspecified; Z99.81 Dependence on supplemental oxygen; D46.9 Myelodysplastic syndrome, unspecified; E83.42 Hypomagnesemia; K57.30 Diverticulosis of large intestine without perforation or abscess without bleeding; M62.262 Nontraumatic ischemic infarction of muscle, left lower leg; I99.8 Other disorder of circulatory system; D50.9 Iron deficiency anemia, unspecified; E78.5 Hyperlipidemia, unspecified; K64.8 Other hemorrhoids; E87.6 Hypokalemia; F17.200 Nicotine dependence, unspecified, uncomplicated; I10 Essential (primary) hypertension; I25.10 Atherosclerotic heart disease of native coronary artery without angina pectoris; K21.9 Gastro-esophageal reflux disease without esophagitis; Z80.9 Family history of malignant neoplasm, unspecified; Z90.49 Acquired absence of other specified parts of digestive tract; Z85.038 Personal history of other malignant neoplasm of large intestine
CPT/HCPCS: 36415; 36430; 71045; 71046; 74176; 77012; 80048; 80053; 81001; 82378; 82607; 82728; 82746; 83735; 85025; 85027; 85610; 85730; 86677; 86850; 86900; 86901; 86922; 88184; 88185; 88237; 88262; 88305; 88311; 88313; 93005; 93970; 94010; 94640; 94660; 94664; A4218; A4344; J0330; J0610; J0697; J1100; J1644; J1650; J1940; J2001; J2175; J2250; J2405; J2704; J2710; J3010; J3475; J3480; J3490; J7030; J7040; J7042; P9016; P9046

== ENCOUNTER 2017-11-18 12:53 | Observation (INO) | payer MEDICARE ==
[2017-11-18] VITALS (9 sets, daily range): BP systolic 107–169; BP diastolic 48–74
[~2017-11-18] VITALS: Ht 165.1 cm; Wt 43.9 kg
[~2017-11-18 12:53] MED LIST changes: +ANTI1CAP2 PO; +APIX2.5T PO; +PRED10TA3 PO
[2017-11-18 13:41] LABS: HEMATOCRIT 21.3 % (36-48); MEAN CORPUSCULAR HEMOGLOBIN 29.3 pg (27.0-33.0); MEAN CORPUSCULAR HGB CONC 31.9 g/dL (32.0-36.0); PLATELET COUNT (AUTO) 431 K/uL (130-400); RED BLOOD CELL COUNT(AUTO) 2.32 MIL/uL (4.00-5.50); RED CELL DISTRIBUTION WIDTH 16.9 % (11.0-15.5); WHITE BLOOD COUNT (AUTO) 12.8 K/uL (4.8-10.8)
[2017-11-18 13:54] LABS: CREATININE 0.7 mg/dL (0.5-1.5); POTASSIUM 4.1 mmol/L (3.5-5.1)
[2017-11-18 13:59] LABS: ALBUMIN 2.7 g/dL (3.5-5.0); BILIRUBIN,TOTAL 0.1 mg/dL (0.2-1.0); TOTAL PROTEIN, SERUM 5.9 g/dL (6.0-8.3)
[2017-11-18 15:16] LABS: BAND NEUTROPHILS % (MANUAL) 2 % (0-2); LYMPHOCYTES % (MANUAL) 4 % (22-44); MAN.DIFF COMMENT-IMPRESSION MANUAL DIFFERENTIAL; MONOCYTES % (MANUAL) 1 % (2-9); SEGMENTED NEUTROPHILS % 93 % (40-70)
[2017-11-18 15:19] LABS: PLATELET MORPHOLOGY COMMENT LARGE PLTS PRESENT
[2017-11-18] MEDS ORDERED: GUAIFENESIN-DM 200/20 MG 10 ML PO PRN (15:45)
[2017-11-18] MEDS ORDERED: HYDRALAZINE HCL 20 MG/ML VIAL IV PRN (15:45)
[2017-11-18] MEDS ORDERED: POTASSIUM CHLORIDE 10% ELIXIR 20 MEQ/15 ML UDCUP PO PRN (15:45)
[2017-11-18] MEDS ORDERED: ACETAMINOPHEN 325 MG TAB PO PRN ×2 (15:45)
[2017-11-18] MEDS ORDERED: NITROGLYCERIN 0.4 MG SL TAB SL PRN (15:45)
[2017-11-18] MEDS ORDERED: POTASSIUM CHLORIDE 20MEQ/100ML 100 ML IV PRN (15:45)
[2017-11-18] MEDS ORDERED: ACETAMINOPHEN-CODEINE 300/30MG TAB PO PRN ×2 (15:45)
[2017-11-18] MEDS ORDERED: LACTULOSE 20 GM/30 ML UDCUP PO PRN (15:45)
[2017-11-18] MEDS ORDERED: MAG HYDROX/AL HYDROX/SIMETH ES 30 ML SUSP UDCUP PO PRN (15:45)
[2017-11-18] MEDS ORDERED: LIDOCAINE HCL-MPF 1% 2ML VIAL IVP PRN (15:45)
[2017-11-18] MEDS ORDERED: MORPHINE SULFATE 4 MG/1ML SYG IV PRN (15:45)
[2017-11-18] MEDS ORDERED: MORPHINE SULFATE 2 MG/ML 1ML SYG IV PRN (15:45)
[2017-11-18] MEDS ORDERED: ONDANSETRON HCL 4 MG/2 ML VIAL IV PRN (15:45)
[2017-11-18] MEDS ORDERED: COMPOUND IV MISC 1 EACH IVSOLN MISC PRN (16:00)
[2017-11-18] MEDS: IRON SUCROSE COMPLEX 100 MG in SODIUM CHLORIDE 0.9% 50 ML IV SCH (16:00)
[2017-11-18] MEDS ORDERED: FUROSEMIDE 10 MG/ML 2ML VIAL IV SCH ×2 (16:30→20:00)
[2017-11-18] MEDS: IPRATROPIUM/ALBUTEROL SULFATE 3 ML SOLUTION IH SCH (17:33)
[2017-11-18] MEDS ORDERED: LACT10SO9 PO (17:34)
[2017-11-18] MEDS ORDERED: ATOR10 PO (17:34)
[2017-11-18] MEDS ORDERED: MV-M1TAB20 PO (17:34)
[2017-11-18] MEDS ORDERED: METO5VIA33 PO (17:34)
[2017-11-18] MEDS ORDERED: HYDR-305 PO (17:34)
[2017-11-18] MEDS ORDERED: FISH1CAP50 PO (17:34)
[2017-11-18] MEDS ORDERED: AUD IH (17:34)
[2017-11-18] MEDS ORDERED: FERS325 PO (17:34)
[2017-11-18] MEDS ORDERED: CALC-916 PO (17:34)
[2017-11-18] MEDS ORDERED: GUAI5SYR PO (17:34)
[2017-11-18] MEDS ORDERED: PRED10TA23 PO (17:34)
[2017-11-18] MEDS ORDERED: OMEP20CA10 PO (17:34)
[2017-11-18] MEDS ORDERED: BUDE10.2 IH (17:34)
[2017-11-18] MEDS ORDERED: DOCU-116 PO (17:34)
[2017-11-18] MEDS ORDERED: AEC81 PO (17:34)
[2017-11-18] MEDS ORDERED: HYDR-2132 PO (17:34)
[2017-11-18] MEDS ORDERED: LISI2.5T2 PO (17:34)
[2017-11-18] MEDS ORDERED: BUDE0.5A8 IH (17:34)
[2017-11-18] MEDS ORDERED: APIX2.5T PO (17:34)
[2017-11-18] MEDS: FAMOTIDINE/PF 20 MG/2 ML VIAL IV SCH (20:01)
[2017-11-19] MEDS: IPRATROPIUM/ALBUTEROL SULFATE 3 ML SOLUTION IH SCH ×2 (00:08→06:44)
[2017-11-19 03:15] VITALS: BP 125/55
[2017-11-19 05:05] LABS: HEMATOCRIT 28.4 % (36-48); MEAN CORPUSCULAR HEMOGLOBIN 33.4 pg (27.0-33.0); MEAN CORPUSCULAR HGB CONC 37.1 g/dL (32.0-36.0); PLATELET COUNT (AUTO) 398 K/uL (130-400); RED BLOOD CELL COUNT(AUTO) 3.15 MIL/uL (4.00-5.50); RED CELL DISTRIBUTION WIDTH 15.1 % (11.0-15.5); WHITE BLOOD COUNT (AUTO) 11.1 K/uL (4.8-10.8)
[2017-11-19 05:18] LABS: CREATININE 0.6 mg/dL (0.5-1.5); POTASSIUM 3.4 mmol/L (3.5-5.1)
[2017-11-19] MEDS: POTASSIUM CHLORIDE 20 MEQ ERTAB PO PRN ×2 (05:48→12:03)
[2017-11-19 08:00] VITALS: BP 141/62
[2017-11-19] MEDS: FAMOTIDINE/PF 20 MG/2 ML VIAL IV SCH (09:00)
[2017-11-19] MEDS: IRON SUCROSE COMPLEX 100 MG in SODIUM CHLORIDE 0.9% 50 ML IV SCH (09:00)
[2017-11-19 11:33] VITALS: BP 133/76
== END 2017-11-19 12:50 ==
LOC: EDH 12:53 → EDHIP 13:07 → 3DH 15:05
PROVIDERS: ADMIT Internal Medicine; ATTEND Internal Medicine
DX: D50.9 Iron deficiency anemia, unspecified (principal); I73.9 Peripheral vascular disease, unspecified; J44.9 Chronic obstructive pulmonary disease, unspecified; J96.10 Chronic respiratory failure, unspecified whether with hypoxia or hypercapnia; I99.8 Other disorder of circulatory system; E78.5 Hyperlipidemia, unspecified; I10 Essential (primary) hypertension; Z72.0 Tobacco use; Z98.49 Cataract extraction status, unspecified eye
CPT/HCPCS: 36415 ×2; 36430; 80048; 80053; 85025; 85027; 86850; 86900; 86901; 86922; 94640 ×3; 94664; 96374; 96375; 99285; G0378 ×24; J1756; J1940; J3490 ×2; P9016 ×2

== ENCOUNTER 2017-12-10 10:38 | Inpatient (IN) | payer MEDICARE ==
[~2017-12-10] VITALS: Ht 165.1 cm; Wt 43.9 kg
[~2017-12-10 10:38] MED LIST changes: +AEC81 PO; +ATOR10 PO; +AUD IH; +BUDE0.5A8 IH; +CALC-916 PO; +DOCU-116 PO; +FERS325 PO; +FISH1CAP50 PO; +GUAI5SYR PO; +HYDR-2132 PO; +HYDR-305 PO; +LACT10SO9 PO; +LISI2.5T2 PO; +METO5VIA33 PO; +MV-M1TAB20 PO; +OMEP20CA10 PO; +PRED10TA23 PO
[2017-12-10 11:26] LABS: CREATININE 0.8 mg/dL (0.5-1.5); POTASSIUM 4.1 mmol/L (3.5-5.1)
[2017-12-10 11:28] LABS: BASOPHILS % (AUTO) 0.3 % (0.0-5.0); EOSINOPHILS % (AUTO) 0.6 % (0.0-8.0); MEAN CORPUSCULAR HEMOGLOBIN 32.8 pg (27.0-33.0); MEAN CORPUSCULAR HGB CONC 33.9 g/dL (32.0-36.0); MEAN CORPUSCULAR VOLUME 96.8 fL (79-99); MONOCYTES % (AUTO) 8.5 % (3.0-13.0); NEUTROPHILS % (AUTO) 82.6 % (40.0-77.0); PLATELET COUNT (AUTO) 439 K/uL (130-400); RED BLOOD CELL COUNT(AUTO) 1.86 MIL/uL (4.00-5.50); RED CELL DISTRIBUTION WIDTH 17.2 % (11.0-15.5); WHITE BLOOD COUNT (AUTO) 15.3 K/uL (4.8-10.8)
[2017-12-10 11:31] LABS: ALBUMIN 3.1 g/dL (3.5-5.0); BILIRUBIN,TOTAL 0.3 mg/dL (0.2-1.0); TOTAL PROTEIN, SERUM 6.1 g/dL (6.0-8.3)
[2017-12-10] MEDS ORDERED: LEVOFLOXACIN 500 MG/D5W 100 ML 100 ML ONE (14:04)
[2017-12-10] MEDS ORDERED: IPRATROPIUM/ALBUTEROL SULFATE 3 ML SOLUTION IH ONE ×3 (14:44→22:16)
[2017-12-10 15:07] LABS: CREATINE KINASE MB 2.6 ng/mL (0.5-3.6); CREATINE KINASE, TOTAL 41 U/L (21-232); MYOGLOBIN 70 ng/mL (10-92); TROPONIN I < 0.04 ng/mL (0.00-0.06)
[2017-12-10 15:13] LABS: INR 0.96 (0.85-1.15); PARTIAL THROMBOPLASTIN TIME 21.1 SEC (26.3-35.5); PROTHROMBIN TIME 10.1 SEC (9.6-11.6)
[2017-12-10 15:27] LABS: % IRON SATURATION 10.5 % (22-44); FERRITIN 42 ng/mL (15-150); IRON, SERUM 40 mcg/dL (50-170); TOTAL IRON BINDING CAPACITY 379 mcg/dL (250-450)
[2017-12-10 15:33] LABS: RETICULOCYTE % (AUTO) 6.26 % (0.42-2.23)
[2017-12-10] MEDS ORDERED: SODIUM CHLORIDE 0.9% 500ML 500 ML IV ONE (15:47)
[2017-12-10 18:23] LABS: HEMATOCRIT 24.6 % (36-48)
[2017-12-10 21:00] VITALS: BP 153/71
[2017-12-10] MEDS ORDERED: LORAZEPAM 1 MG TABLET ONE (21:23)
[2017-12-10] MEDS ORDERED: LORAZEPAM 2 MG/ML 1 ML VIAL IVP PRN ×2 (21:30)
[2017-12-10] MEDS ORDERED: ONDANSETRON HCL 4 MG/2 ML VIAL IV PRN (21:30)
[2017-12-10] MEDS ORDERED: CHLORDIAZEPOXIDE HCL 25 MG CAP PO PRN ×2 (21:30)
[2017-12-10 22:31] LABS: AMPHET/METH SCREEN,URINE NEGATIVE (NEGATIVE); BARBITURATE SCREEN, URINE NEGATIVE (NEGATIVE); BENZODIAZEPINES SCREEN,URINE NEGATIVE (NEGATIVE); CANNABINOID SCREEN,URINE NEGATIVE (NEGATIVE); COCAINE SCREEN,URINE NEGATIVE (NEGATIVE); OPIATE SCREEN,URINE POSITIVE (NEGATIVE); PHENCYCLIDINE SCREEN,URINE NEGATIVE (NEGATIVE)
[2017-12-10 23:27] VITALS: BP 116/59
[2017-12-11] VITALS (20 sets, daily range): BP systolic 100–163; BP diastolic 52–91
[2017-12-11 00:31] LABS: HEMATOCRIT 21.8 % (36-48)
[2017-12-11 00:53] LABS: ALCOHOL, BLOOD < 3 mg/dL (0-10); CREATINE KINASE MB 3.3 ng/mL (0.5-3.6); CREATINE KINASE, TOTAL 43 U/L (21-232); MYOGLOBIN 116 ng/mL (10-92); PHOSPHORUS 2.3 mg/dL (2.5-4.9); TROPONIN I < 0.04 ng/mL (0.00-0.06)
[2017-12-11] MEDS ORDERED: MORPHINE SULFATE 2 MG/ML 1ML SYG ONE (01:11)
[2017-12-11] MEDS ORDERED: LORAZEPAM 1 MG TABLET PO PRN (01:30)
[2017-12-11] MEDS ORDERED: HYDRALAZINE HCL 20 MG/ML VIAL IV PRN (01:30)
[2017-12-11] MEDS ORDERED: ACETAMINOPHEN 325 MG TAB PO PRN (01:30)
[2017-12-11] MEDS: DEXTROSE 5 % AND 0.9 % NACL 1,000 ML IV SCH ×2 (03:45→14:50)
[2017-12-11] MEDS: FUROSEMIDE 10 MG/ML 2ML VIAL IVP SCH ×2 (03:45→07:45)
[2017-12-11 06:32] LABS: HEMATOCRIT 25.2 % (36-48); MEAN CORPUSCULAR HEMOGLOBIN 29.6 pg (27.0-33.0); MEAN CORPUSCULAR HGB CONC 32.4 g/dL (32.0-36.0); MEAN CORPUSCULAR VOLUME 91.1 fL (79-99); PLATELET COUNT (AUTO) 411 K/uL (130-400); RED BLOOD CELL COUNT(AUTO) 2.77 MIL/uL (4.00-5.50); WHITE BLOOD COUNT (AUTO) 12.3 K/uL (4.8-10.8)
[2017-12-11] MEDS: IPRATROPIUM/ALBUTEROL SULFATE 3 ML SOLUTION IH PRN ×4 (06:39→23:50)
[2017-12-11 07:01] LABS: ALANINE AMINOTRANSFERASE 18 U/L (12-78); ALBUMIN 2.9 g/dL (3.5-5.0); ASPARTATE AMINOTRANSFERASE 16 U/L (10-37); BILIRUBIN,TOTAL 0.5 mg/dL (0.2-1.0); CARBON DIOXIDE 32 mmol/L (21-32); CHLORIDE 101 mmol/L (101-111); CREATINE KINASE MB 3.2 ng/mL (0.5-3.6); CREATINE KINASE, TOTAL 40 U/L (21-232); CREATININE 0.8 mg/dL (0.5-1.5); GLOMERULAR FILTR. RATE CALC 74 mL/min (>60); GLUCOSE,RANDOM 106 mg/dL (70-105); MYOGLOBIN 151 ng/mL (10-92); POTASSIUM 3.8 mmol/L (3.5-5.1); SODIUM SERUM 137 mmol/L (136-145); TOTAL PROTEIN, SERUM 5.7 g/dL (6.0-8.3); TROPONIN I < 0.04 ng/mL (0.00-0.06); UREA NITROGEN, BLOOD 16 mg/dL (7-18)
[2017-12-11] MEDS: FOLIC ACID 1 MG TABLET PO SCH (09:00)
[2017-12-11] MEDS: MULTIVITAMIN TABLET PO SCH (09:00)
[2017-12-11] MEDS ORDERED: THIAMINE HCL 100 MG/ML 2ML VIAL IM SCH (09:00)
[2017-12-11] MEDS: PANTOPRAZOLE 40 MG/VIAL IVP SCH ×2 (09:05→21:00)
[2017-12-11] MEDS: FAMOTIDINE/PF 20 MG/2 ML VIAL IV SCH (09:05)
[2017-12-11] MEDS: MORPHINE SULFATE 2 MG/ML 1ML SYG IVP PRN ×2 (10:41→18:51)
[2017-12-11 12:09] LABS: HEMATOCRIT 24.3 % (36-48)
[2017-12-11] MEDS: IRON SUCROSE COMPLEX 100 MG in SODIUM CHLORIDE 0.9% 50 ML IV SCH (18:57)
[2017-12-11] MEDS ORDERED: COMPOUND IV MISC 1 EACH IVSOLN MISC PRN (19:30)
[2017-12-12] MEDS: DEXTROSE 5 % AND 0.9 % NACL 1,000 ML IV SCH (02:16)
[2017-12-12 03:20] VITALS: BP 124/63
[2017-12-12 04:24] LABS: MEAN CORPUSCULAR HEMOGLOBIN 31.7 pg (27.0-33.0); MEAN CORPUSCULAR HGB CONC 34.3 g/dL (32.0-36.0); MEAN CORPUSCULAR VOLUME 92.4 fL (79-99); PLATELET COUNT (AUTO) 324 K/uL (130-400); RED BLOOD CELL COUNT(AUTO) 2.16 MIL/uL (4.00-5.50); RED CELL DISTRIBUTION WIDTH 17.4 % (11.0-15.5); WHITE BLOOD COUNT (AUTO) 12.5 K/uL (4.8-10.8)
[2017-12-12] MEDS: IPRATROPIUM/ALBUTEROL SULFATE 3 ML SOLUTION IH PRN ×3 (06:15→18:21)
[2017-12-12 07:00] VITALS: BP 138/55
[2017-12-12] MEDS ORDERED: IRON SUCROSE COMPLEX 100 MG in SODIUM CHLORIDE 0.9% 50 ML IV SCH (09:00)
[2017-12-12] MEDS ORDERED: LEVOFLOXACIN 500 MG/D5W 100 ML 100 ML IV SCH (09:00)
[2017-12-12] MEDS ORDERED: THIAMINE HCL 100 MG/ML 2ML VIAL IVP SCH (09:00)
[2017-12-12] MEDS ORDERED: LACTULOSE 20 GM/30 ML UDCUP PO PRN (09:15)
[2017-12-12] MEDS ORDERED: DOCUSATE SODIUM 100 MG CAP PO ONE (10:50)
[2017-12-12 11:00] VITALS: BP 143/62
[2017-12-12] MEDS: FERROUS SULFATE 325 MG TABLET.DR PO SCH (11:12)
[2017-12-12] MEDS: PANTOPRAZOLE 40 MG/VIAL IVP SCH ×2 (11:13→20:20)
[2017-12-12] MEDS: FAMOTIDINE/PF 20 MG/2 ML VIAL IV SCH (11:13)
[2017-12-12] MEDS: FOLIC ACID 1 MG TABLET PO SCH (11:13)
[2017-12-12] MEDS: DOCUSATE SODIUM 100 MG CAP PO SCH ×2 (11:13→20:20)
[2017-12-12] MEDS: MULTIVITAMIN TABLET PO SCH (11:13)
[2017-12-12] MEDS: PREDNISONE 10 MG TABLET PO SCH (11:16)
[2017-12-12 12:09] LABS: HEMATOCRIT 29.7 % (36-48)
[2017-12-12 16:00] VITALS: BP 141/65
[2017-12-12] MEDS: IRON SUCROSE COMPLEX 100 MG in SODIUM CHLORIDE 0.9% 50 ML IV SCH (17:58)
[2017-12-12] MEDS: BUDESONIDE 0.5 MG/2 ML INH IH SCH (18:22)
[2017-12-12 19:20] VITALS: BP 130/64
[2017-12-12] MEDS ORDERED: ATORVASTATIN CALCIUM 10 MG TABLET PO SCH (21:00)
[2017-12-12] MEDS ORDERED: DOCUSATE SODIUM 100 MG CAP PO SCH (21:00)
[2017-12-12] MEDS: MORPHINE SULFATE 2 MG/ML 1ML SYG IVP PRN (22:14)
[2017-12-13 00:25] VITALS: BP 134/65
[2017-12-13 00:51] LABS: HEMATOCRIT 24.6 % (36-48)
[2017-12-13 04:18] VITALS: BP 136/89
[2017-12-13 04:52] LABS: BASOPHILS % (AUTO) 0.2 % (0.0-5.0); EOSINOPHILS % (AUTO) 2.6 % (0.0-8.0); HEMATOCRIT 25.6 % (36-48); LYMPHOCYTES % (AUTO) 6.1 % (21.0-51.0); MEAN CORPUSCULAR HEMOGLOBIN 30.1 pg (27.0-33.0); MEAN CORPUSCULAR HGB CONC 33.1 g/dL (32.0-36.0); MEAN CORPUSCULAR VOLUME 90.9 fL (79-99); MONOCYTES % (AUTO) 8.6 % (3.0-13.0); NEUTROPHILS % (AUTO) 82.5 % (40.0-77.0); PLATELET COUNT (AUTO) 287 K/uL (130-400); RED BLOOD CELL COUNT(AUTO) 2.81 MIL/uL (4.00-5.50); WHITE BLOOD COUNT (AUTO) 10.4 K/uL (4.8-10.8)
[2017-12-13 05:00] LABS: INR 0.95 (0.85-1.15); PARTIAL THROMBOPLASTIN TIME 28.2 SEC (26.3-35.5)
[2017-12-13 05:01] LABS: CREATININE 0.5 mg/dL (0.5-1.5); POTASSIUM 3.6 mmol/L (3.5-5.1)
[2017-12-13] MEDS: IPRATROPIUM/ALBUTEROL SULFATE 3 ML SOLUTION IH PRN ×3 (06:13→11:12)
[2017-12-13] MEDS: BUDESONIDE 0.5 MG/2 ML INH IH SCH (06:30)
[2017-12-13 07:00] VITALS: BP 139/60
[2017-12-13] MEDS: FOLIC ACID 1 MG TABLET PO SCH (08:29)
[2017-12-13] MEDS: MULTIVITAMIN TABLET PO SCH (08:29)
[2017-12-13] MEDS: PREDNISONE 10 MG TABLET PO SCH (08:29)
[2017-12-13] MEDS: FERROUS SULFATE 325 MG TABLET.DR PO SCH (08:29)
[2017-12-13] MEDS: DOCUSATE SODIUM 100 MG CAP PO SCH (08:30)
[2017-12-13] MEDS ORDERED: HYDROCODONE/ACETAMINOPHEN 5/325 MG TAB ONE (08:59)
[2017-12-13] MEDS ORDERED: PREDNISONE 10 MG TABLET PO SCH (09:00)
[2017-12-13] MEDS ORDERED: HYDROCODONE/ACETAMINOPHEN 5/325 MG TAB PO PRN (09:00)
[2017-12-13] MEDS: PANTOPRAZOLE 40 MG/VIAL IVP SCH (09:12)
[2017-12-13] MEDS: IRON SUCROSE COMPLEX 100 MG in SODIUM CHLORIDE 0.9% 50 ML IV SCH (09:12)
[2017-12-13 11:00] VITALS: BP 116/62
== END 2017-12-13 12:35 | disposition home or self-care (01) | DRG 392 ==
LOC: EDH 10:38 → OBSVTOIN 11:50 → EDHIP 11:50 → 3AH 19:47
PROVIDERS: ADMIT Internal Medicine; ATTEND Internal Medicine
PROC: 0DJ08ZZ Inspection of Upper Intestinal Tract, Via Natural or Artificial Opening Endoscopic (ICD-10-PCS; principal; 2017-12-11)
PROC: 30233N1 Transfusion of Nonautologous Red Blood Cells into Peripheral Vein, Percutaneous Approach (ICD-10-PCS; 2017-12-11)
DX: K31.819 Angiodysplasia of stomach and duodenum without bleeding (principal); C85.90 Non-Hodgkin lymphoma, unspecified, unspecified site; J44.1 Chronic obstructive pulmonary disease with (acute) exacerbation; D62 Acute posthemorrhagic anemia; Z99.81 Dependence on supplemental oxygen; D46.9 Myelodysplastic syndrome, unspecified; E78.5 Hyperlipidemia, unspecified; F10.20 Alcohol dependence, uncomplicated; D50.9 Iron deficiency anemia, unspecified; F41.9 Anxiety disorder, unspecified; G89.29 Other chronic pain; I10 Essential (primary) hypertension; I73.9 Peripheral vascular disease, unspecified; K44.9 Diaphragmatic hernia without obstruction or gangrene; Z79.01 Long term (current) use of anticoagulants; Z85.038 Personal history of other malignant neoplasm of large intestine; Z87.11 Personal history of peptic ulcer disease; Z87.891 Personal history of nicotine dependence
CPT/HCPCS: 36415; 36430; 71046; 74176; 80048; 80053; 80305; 82550; 82553; 82607; 82728; 82746; 83735; 83874; 84100; 84484; 85014; 85018; 85025; 85027; 85610; 85730; 86850; 86900; 86901; 86922; 93005; 94640; 94664; C9113; G0480; J1756; J1940; J1956; J2060; J3411; J3490; J7040; J7042; J7512; P9016